=== PATIENT | male | born 1985 | race Caucasian/White ===

== ENCOUNTER → 2017-01-11 | Outpatient (CLI) | payer OTHER ==
[2017-01-11 15:03] VITALS: BP 140/81
== END ==
LOC: MHUC 14:27
PROVIDERS: ATTEND Physician Assistant
DX: J09.X2 Influenza due to identified novel influenza A virus with other respiratory manifestations (principal)
CPT/HCPCS: 99213

== ENCOUNTER → 2017-02-15 | Outpatient (CLI) | payer OTHER ==
[~2017-02-15] MED LIST: SODIUM CHLORIDE VIAL (PF) 10 ML IV ONE
== END ==
LOC: PMC 10:52
PROVIDERS: ATTEND Family Medicine
DX: G44.229 Chronic tension-type headache, not intractable (principal); G43.809 Other migraine, not intractable, without status migrainosus
CPT/HCPCS: 64615; J7050